=== PATIENT | male | born 1985 | race Caucasian/White ===

== ENCOUNTER → 2020-04-20 15:10 | Outpatient (CLI) | payer OTHER, SELFPAY ==
[2020-04-22 07:07] LABS: COVID19 Sendout Not Detected (Not Detected)
== END ==
PROVIDERS: Visit Provider Physician Assistant
DX: Z11.59 Encounter for screening for other viral diseases (principal)
CPT/HCPCS: 87635

== ENCOUNTER → 2020-08-12 13:17 | Outpatient (CLI) | payer OTHER, SELFPAY ==
--- NOTE | 2020-08-12 | DI.RAD.S_ITS ---
PROCEDURE: XR LUMBAR SPINE 2-3V INDICATIONS: low back pain TECHNIQUE: 3 views of the lumbar spine were acquired. COMPARISON: None. FINDINGS: Bones: No fracture. Multilevel degenerative endplate sclerosis and spurring. Diffuse facet arthropathy. Diffuse mild narrowing of the lumbar disc spaces. Minimal levocurvature. Soft tissues: Overlying bowel gas pattern is normal. No suspicious soft tissue calcifications. IMPRESSION: Mild lumbar spondylosis and facet arthropathy as above. Dictated by: Santana Toribio M.D. on 08/12/2020 at 16:02 Approved by: Santana Toribio M.D. on 08/12/2020 at 16:03
== END ==
PROVIDERS: Referring Provider Family Medicine; Visit Provider Family Medicine
DX: M54.5 Low back pain (principal); M47.816 Spondylosis without myelopathy or radiculopathy, lumbar region
CPT/HCPCS: 72100